=== PATIENT | male | born 1995 | race Caucasian/White ===

== ENCOUNTER 2017-02-07 15:43 | Outpatient (CLI) | payer BC ==
--- NOTE | 2017-02-07 16:21 | DIAGNOSTIC IMAGING REPORT ---
PROCEDURE: US SCROTUM/TESTICLE INDICATION: BILATERAL TESTICULAR PAIN TECHNIQUE: Hannah scale and color Doppler sonographic images through the scrotum were obtained. COMPARISON: None. FINDINGS: The right testicle measures 4.8 at the 0.8 x 2.8 cm and the left measures 4.6 x 3 x 2.5 cm Both testicles demonstrate homogeneous echotexture without solid mass, cyst, or numerous microcalcifications. Color Doppler imaging demonstrates normal and symmetric arterial and venous testicular flow. No suspicious hyperemia. The right epididymis is normal in size, echotexture, and vascularity. The body of the left epididymis was not well seen. There is a small hydrocele on the left. No varicocele. No significant scrotal skin thickening. IMPRESSION: 1. Small left hydrocele. The body of the left epididymis was not well seen.
== END 2017-02-07 23:00 ==
LOC: US SRH 15:43
DX: N43.3 Hydrocele, unspecified (principal)